=== PATIENT | female | born 2000 | race Caucasian/White ===

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

== ENCOUNTER 2019-05-01 09:26 | Emergency (ER) | payer MEDICAID ==
[~2019-05-01] VITALS: Ht 152.4 cm; Wt 49.9 kg
[2019-05-01 09:26] VITALS: BP_SYST 117
--- NOTE | 2019-05-01 09:28 | NUR ---
Patient to ER bed 08 to gown for evaluation. Side rails up.
--- NOTE | 2019-05-01 09:29 | NUR ---
ER at bedside examining patient.
--- NOTE | 2019-05-01 09:30 | NUR ---
Patient given written and verbal discharge instructions and verbalizes understanding. ER MD discussed with patient the results and treatment provided. Patient in stable condition. ID arm band removed. Rx of AUGMENTIN,ALBUTEROL,TYLENOL given. Patient educated on pain management and to follow up with PMD. Pain Scale 2. Opportunity for questions provided and answered. Medication side effect fact sheet provided.
[2019-05-01 09:40] VITALS: BP_SYST 117
== END 2019-05-01 09:30 | disposition home or self-care (01) ==
LOC: SED 09:26
DX: H66.92 Otitis media, unspecified, left ear (principal); J40 Bronchitis, not specified as acute or chronic
CPT/HCPCS: 99283

== ENCOUNTER 2019-06-18 12:34 | Emergency (ER) | payer MEDICAID ==
[~2019-06-18] VITALS: Ht 162.6 cm; Wt 54.4 kg
[2019-06-18 12:35] VITALS: BP_SYST 98
[2019-06-18] MEDS ORDERED: KETOROLAC TROMETHAMINE 30 MG VIAL IM ONE (15:00)
[2019-06-18 15:22] VITALS: BP_SYST 98
== END 2019-06-18 15:21 | disposition home or self-care (01) ==
LOC: SED 12:34
DX: J11.1 Influenza due to unidentified influenza virus with other respiratory manifestations (principal); H66.92 Otitis media, unspecified, left ear
CPT/HCPCS: 71046; 81025; 96372; 99283; J1885